=== PATIENT | female | born 1970 | race Caucasian/White ===

== ENCOUNTER 2019-04-20 14:15 | Emergency (ER) | payer MEDICAID, OTHER ==
[2019-04-20 14:20] VITALS: O2SAT 100
--- NOTE | 2019-04-20 14:55 | XRAY ---
Indication: Chest pain. Comparison: February 26, 2016. Portable chest again demonstrates normal heart, lungs, and bony thorax.
[2019-04-20 15:06] LABS: Absolute Neutrophil Ct (ANC) 4.47 (1.4-6.9); BASOPHIL % 0.4 % (0.0-0.4); Basophil (Absolute #) 0.03 (0-0.4); Eosinophil % 2.1 % (0.00-5.0); Eosinophil (Absolute #) 0.14 (0-0.5); Hematocrit 37.1 % (35-47); Hemoglobin 12.1 gm/dl (12.0-16.0); Lymphocyte (Absolute #) 1.61 (1.0-4.6); Lymphocytes % 23.9 % (24.0-44.0); Mean Cell Volume 89.2 fl (78-100); Mean Corpuscular Hemoglobin 29.1 pg (26-32); Mean Corpuscular Hgb Concent. 32.6 g/dl (32-36); Mean Platelet Volume 9.1 fl (7.5-11.0); Monocyte (Absolute #) 0.49 (0.0-1.3); Monocytes % 7.3 % (0.0-12.0); Neutrophil % 66.3 % (36.0-66.0); Platelet Count 281 K/mm3 (150-450); Red Blood Count 4.16 M/mm3 (4.1-5.4); Red Cell Distribution Width 14.1 % (11.5-14.0); White Blood Count 6.7 K/mm3 (4.0-10.5)
[2019-04-20 15:13] LABS: INR 0.97 (0.8-3.0); PROTIME 10.9 SECONDS (9.95-12.35)
[2019-04-20 15:16] LABS: PTT 30.6 SECONDS (25.3-37.0)
[2019-04-20 15:18] LABS: ALBUMIN 3.8 g/dL (3.5-5.0); ALKALINE PHOSPHATASE 82 U/L (38-126); ANION GAP 5.5 MEQ/L (5-15); BLOOD UREA NITROGEN 10 mg/dL (7-17); CHLORIDE 106 mmol/L (98-107); Calcium 8.9 mg/dL (8.4-10.2); Carbon Dioxide 29 mmol/L (22-30); Creatinine 1 0.82 mg/dL (0.52-1.04); Glucose 89 mg/dL (74-106); SGOT/AST 24 U/L (14-36); SGPT/ALT 15 U/L (0-35); SODIUM 137 mmol/L (137-145); Total Protein 7.1 g/dL (6.3-8.2)
[2019-04-20 16:00] LABS: Amphetamine,Urine NEGATIVE (NEGATIVE); Barbiturate,Urine NEGATIVE (NEGATIVE); Benzodiazepine,Urine NEGATIVE (NEGATIVE); Cocaine,Urine NEGATIVE (NEGATIVE); Methadone,Urine NEGATIVE (NEGATIVE); Opiate,Urine NEGATIVE (NEGATIVE); PCP,Urine NEGATIVE (NEGATIVE); THC,Urine NEGATIVE (NEGATIVE)
--- NOTE | 2019-04-20 16:19 | ERPHSYRPT ---
- History of Present Illness Time Seen by Provider: 04/20/19 14:20 Historian: patient Exam Limitations: no limitations Patient Subjective Stated Complaint: pt was sent from drs office for pain to left jaw and left side of chest, she states she has chest pain every day but not jaw pain, she states she was at drs office for a heavy vaginal bleeding, pt has hx of NM. she has not been taking her meds for 2-3 years Triage Nursing Assessment: pt alert, walked in, resp easy, skin w/d/p, abd soft. no edema noted, moves all ext well Physician History: Patient is a 48-year-old female with history of NM who presents to our ED as a referral from her physician's office. Patient has a history of NM. Patient was sent to our ED for evaluation of chest pain which radiates to her left neck and shoulder. Patient was also observed to have high blood pressure. Symptoms are constant. No specific worsening improving factors. Patient states she has chest pain chronically but her symptoms are much worse today. No trauma. No fever. No heart palpitations. Patient voices no other complaints at this time. Timing/Duration: today, improved Activities at Onset: none Quality: aching Location: substernal Chest Pain Radiation: jaw, neck Severity of Pain-Max: moderate Severity of Pain-Current: moderate Modifying Factors: Improves With: nothing Associated Symptoms: dizziness, No vomiting, No shortness of breath, No diaphoresis, No fever, No edema Prior Chest Pain/Cardiac Workup: heart attack Aspirin Treatment Today: no aspirin today Allergies/Adverse Reactions: ketorolac [From Toradol] Allergy (Severe, Verified 04/20/19 14:27) codeine Allergy (Verified 04/20/19 14:27) hydrocodone Allergy (Verified 04/20/19 14:27) hydromorphone [From Dilaudid] Allergy (Verified 04/20/19 14:27) meperidine HCl [From Demerol] Allergy (Verified 04/20/19 14:27) morphine Allergy (Verified 04/20/19 14:27) Home Medications: No Reportable Medications [No Reported Medications] 04/20/19 [History] Hx Tetanus, Diphtheria Vaccination/Date Given: No (unknown) Hx Influenza Vaccination/Date Given: No Hx Pneumococcal Vaccination/Date Given: No Immunizations Up to Date: Yes - Review of Systems Constitutional: No Fever, No Chills Eyes: No Symptoms Ears, Nose, & Throat: No Symptoms Respiratory: No Cough, No Dyspnea Cardiac: No Chest Pain, No Edema, No Syncope Abdominal/Gastrointestinal: No Abdominal Pain, No Nausea, No Vomiting, No Diarrhea Genitourinary Symptoms: No Dysuria Musculoskeletal: No Back Pain, No Neck Pain Skin: No Rash Neurological: No Dizziness, No Focal Weakness, No Sensory Changes Psychological: No Symptoms Endocrine: No Symptoms All Other Systems: Reviewed and Negative - Past Medical History Pertinent Past Medical History: Yes Neurological History: No Pertinent History ENT History: No Pertinent History Cardiac History: Coronary Artery Disease, High Cholesterol, Hypertension, Myocardial Infarction (NM), Other Respiratory History: No Pertinent History Endocrine Medical History: No Pertinent History Musculoskeletal History: No Pertinent History GI Medical History: Other History: No Pertinent History Psycho-Social History: No Pertinent History Female Reproductive Disorders: No Pertinent History Other Medical History: anemia - rectal bleeding - Past Surgical History Past Surgical History: Yes Neuro Surgical History: No Pertinent History Cardiac: Cardiac Catheterization Respiratory: No Pertinent History Gastrointestinal: Exploratory Laparoscopy Genitourinary: No Pertinent History Musculoskeletal: No Pertinent History Female Surgical History: Section, Tubal Ligation - Social History Smoking Status: Former smoker How long have you smoked: 13 Exposure to second hand smoke: Yes Drug Use: none Patient Lives Alone: No - Female History Hx Last Menstrual Period: now Hx Now: No - Nursing Vital Signs Nursing Vital Signs: Initial Vital Signs Temperature 98.1 F 04/20/19 14:16 Pulse Rate 76 04/20/19 14:16 Respiratory Rate 16 04/20/19 14:16 Blood Pressure 177/112 04/20/19 14:16 O2 Sat by Pulse Oximetry 100 04/20/19 14:16 Pain Scale Pain Intensity 0 - Physical Exam General Appearance: no apparent distress, alert Eye Exam: PERRL/EOMI, eyes nml inspection Ears, Nose, Throat Exam: normal ENT inspection, moist mucous membranes Neck Exam: normal inspection, non-tender, supple, full range of motion Respiratory Exam: normal breath sounds, lungs clear, No respiratory distress Cardiovascular Exam: regular rate/rhythm, normal heart sounds Gastrointestinal/Abdomen Exam: soft, No tenderness, No mass Pelvic Exam: not done Rectal Exam: deferred Back Exam: normal inspection, No CVA tenderness, No vertebral tenderness Extremity Exam: normal inspection, normal range of motion Neurologic Exam: alert, oriented x 3, cooperative, normal mood/affect, sensation nml, No motor deficits Skin Exam: normal color, warm, dry SpO2 Interpretation: normal SpO2: 100 O2 Delivery: Room Air - Course Nursing assessment & vital signs reviewed: Yes EKG Interpreted by Me: RATE, NORMAL AXIS, NORMAL INTERVALS - Radiology Exams Chest X-ray Interpretation: Teleradiologist Report, Negative Ordered Tests: Active Orders 24 hr Category Date Time Status Rrt STAT Care 04/20/19 14:34 Active EKG-ER Only STAT Care 04/20/19 14:33 Active IV Insertion STAT Care 04/20/19 14:33 Active Pulse Oximetry (ED) STAT Care 04/20/19 14:33 Active CHEST 1 VIEW (PORTABLE) Stat Exams 04/20/19 14:34 Completed CBC W DIFF Stat Lab 04/20/19 15:06 Completed CMP Stat Lab 04/20/19 15:06 Completed PROTIME WITH INR Stat Lab 04/20/19 15:06 Completed PTT Stat Lab 04/20/19 15:06 Completed TROPONIN Q3H Lab 04/20/19 15:06 Completed TROPONIN Q3H Lab 04/20/19 17:55 Completed TROPONIN Q3H Lab 04/20/19 20:45 Ordered TROPONIN Q3H Lab 04/20/19 23:45 Ordered TROPONIN Q3H Lab 04/21/19 02:45 Ordered Urine Triage Profile Stat Lab 04/20/19 15:36 Completed Medication Summary Discontinued Medications Generic Name Dose Route Start Last Admin Trade Name Freq PRN Reason Stop Dose Admin Aspirin 324 mg 04/20/19 17:46 04/20/19 17:56 Baby Aspirin 81 Mg Chew PO 04/20/19 17:47 324 mg STAT ONE Administration Aspirin Confirm 04/20/19 17:54 Baby Aspirin 81 Mg Chew Administered 04/20/19 17:55 Dose 324 mg .ROUTE .STK-MED ONE Lab/Rad Data: Laboratory Result Diagrams 04/20/19 15:06 04/20/19 15:06 Laboratory Results 04/20/19 04/20/19 04/20/19 Range/Units 17:55 15:36 15:06 WBC (4.0-10.5) K/mm3 RBC (4.1-5.4) M/mm3 Hgb (12.0-16.0) gm/dl Hct (35-47) % MCV (78-100) fl MCH (26-32) pg MCHC (32-36) g/dl RDW (11.5-14.0) % Plt Count (150-450) K/mm3 MPV (7.5-11.0) fl Gran % (36.0-66.0) % Eos # (Auto) (0-0.5) Absolute Lymphs (auto) (1.0-4.6) Absolute Monos (auto) (0.0-1.3) Lymphocytes % (24.0-44.0) % Monocytes % (0.0-12.0) % Eosinophils % (0.00-5.0) % Basophils % (0.0-0.4) % Absolute Granulocytes (1.4-6.9) Basophils # (0-0.4) PT (9.95-12.35) SECONDS INR (0.8-3.0) APTT (25.3-37.0) SECONDS Sodium (137-145) mmol/L Potassium (3.5-5.1) mmol/L Chloride (98-107) mmol/L Carbon Dioxide (22-30) mmol/L Anion Gap (5-15) MEQ/L BUN (7-17) mg/dL Creatinine (0.52-1.04) mg/dL Estimated GFR ML/MIN Glucose (74-106) mg/dL Calcium (8.4-10.2) mg/dL Total Bilirubin (0.2-1.3) mg/dL AST (14-36) U/L ALT (0-35) U/L Alkaline Phosphatase (38-126) U/L Troponin I < 0.012 < 0.012 (0.000-0.034) ng/mL Serum Total Protein (6.3-8.2) g/dL Albumin (3.5-5.0) g/dL Urine Opiates Level NEGATIVE (NEGATIVE) Ur Methadone NEGATIVE (NEGATIVE) Urine Barbiturates NEGATIVE (NEGATIVE) Ur Phencyclidine (PCP) NEGATIVE (NEGATIVE) Urine Amphetamine NEGATIVE (NEGATIVE) U Benzodiazepine Level NEGATIVE (NEGATIVE) Urine Cocaine NEGATIVE (NEGATIVE) Urine Marijuana (THC) NEGATIVE (NEGATIVE) 04/20/19 04/20/19 04/20/19 Range/Units 15:06 15:06 15:06 WBC 6.7 (4.0-10.5) K/mm3 RBC 4.16 (4.1-5.4) M/mm3 Hgb 12.1 (12.0-16.0) gm/dl Hct 37.1 (35-47) % MCV 89.2 (78-100) fl MCH 29.1 (26-32) pg MCHC 32.6 (32-36) g/dl RDW 14.1 H (11.5-14.0) % Plt Count 281 (150-450) K/mm3 MPV 9.1 (7.5-11.0) fl Gran % 66.3 H (36.0-66.0) % Eos # (Auto) 0.14 (0-0.5) Absolute Lymphs (auto) 1.61 (1.0-4.6) Absolute Monos (auto) 0.49 (0.0-1.3) Lymphocytes % 23.9 L (24.0-44.0) % Monocytes % 7.3 (0.0-12.0) % Eosinophils % 2.1 (0.00-5.0) % Basophils % 0.4 (0.0-0.4) % Absolute Granulocytes 4.47 (1.4-6.9) Basophils # 0.03 (0-0.4) PT 10.9 (9.95-12.35) SECONDS INR 0.97 (0.8-3.0) APTT 30.6 (25.3-37.0) SECONDS Sodium 137 (137-145) mmol/L Potassium 4.0 (3.5-5.1) mmol/L Chloride 106 (98-107) mmol/L Carbon Dioxide 29 (22-30) mmol/L Anion Gap 5.5 (5-15) MEQ/L BUN 10 (7-17) mg/dL Creatinine 0.82 (0.52-1.04) mg/dL Estimated GFR > 60.0 ML/MIN Glucose 89 (74-106) mg/dL Calcium 8.9 (8.4-10.2) mg/dL Total Bilirubin 0.40 (0.2-1.3) mg/dL AST 24 (14-36) U/L ALT 15 (0-35) U/L Alkaline Phosphatase 82 (38-126) U/L Troponin I (0.000-0.034) ng/mL Serum Total Protein 7.1 (6.3-8.2) g/dL Albumin 3.8 (3.5-5.0) g/dL Urine Opiates Level (NEGATIVE) Ur Methadone (NEGATIVE) Urine Barbiturates (NEGATIVE) Ur Phencyclidine (PCP) (NEGATIVE) Urine Amphetamine (NEGATIVE) U Benzodiazepine Level (NEGATIVE) Urine Cocaine (NEGATIVE) Urine Marijuana (THC) (NEGATIVE) - Progress Progress Note: 04/20/19 19:35 Patient requested transfer to [facility] to see her pharmaceutical development technician however her pharmaceutical development technician is no longer on staff there. He is currently on staff at [facility]. We attempted to transfer patient to [facility] however there [employer] is not functional at this time. The transfer was declined. We contacted [facility]. They accepted transfer. Dr. Nayak accepted transfer. Plan of care discussed with patient. She agrees to transfer to [facility] for further evaluation and treatment. Blood Culture(s) Obtained: No Antibiotics given: No Discussed with Dr.: Other (Case discussed with Dr. Nayak of [facility] who accepts transfer.) Counseled pt/family regarding: lab results, diagnosis, rad results - Departure Departure Disposition: Transfer Clinical Impression: Chest pain Condition: Stable Critical Care Time: No Referrals: FALLON CHANDRA [Primary Care Provider] - Additional Instructions: Patient request to be transferred to [facility]. Case discussed with her pharmaceutical development technician Dr. Solo who accepts transfer.
[2019-04-20] MEDS ORDERED: BABY ASPIRIN 81 MG CHEW PO ONE (17:46)
[2019-04-20] MEDS ORDERED: BABY ASPIRIN 81 MG CHEW ONE (17:54)
[2019-04-20] MEDS ORDERED: NITRO-BID 2% UD PACKETS TOP ONE (19:37)
[2019-04-20 19:38] VITALS: BP 131/88
[2019-04-20] MEDS ORDERED: NITRO-BID 2% UD PACKETS ONE ×2 (19:39→19:45)
[2019-04-20 20:00] VITALS: PULSE 76
== END 2019-04-20 19:55 | disposition short-term general hospital (02) ==
LOC: ED 14:15
DX: R07.89 Other chest pain (principal); I10 Essential (primary) hypertension; E78.00 Pure hypercholesterolemia, unspecified; I25.10 Atherosclerotic heart disease of native coronary artery without angina pectoris; I25.2 Old myocardial infarction
CPT/HCPCS: 36000; 36415; 71045; 80053; 80307; 84484; 85025; 85610; 85730; 93005; 93041; 94760; 99284; A9270-GY

== ENCOUNTER 2019-07-18 06:21 | Day surgery (SDC) | payer OTHER ==
[2019-07-18] MEDS ORDERED: Lactated Ringers 1,000 ML IV ONE ×2 (06:47→08:25)
[2019-07-18] MEDS ORDERED: CEFAZOLIN 2 GM-D5W BAG** 2 GM/50 ML ML IV ONE (06:47)
[2019-07-18] MEDS ORDERED: Lactated Ringers 1,000 ML IV SCH (07:00)
[2019-07-18] MEDS: CEFAZOLIN 2 GM-D5W BAG** 2 GM/50 ML ML IV SCH ×2 (07:01→07:02)
[2019-07-18] MEDS ORDERED: Zofran 4 MG/2 ML VIAL ONE (08:13)
[2019-07-18] MEDS ORDERED: DIPRIVAN 200 MG/20 ML IV ONE (08:13)
[2019-07-18] MEDS ORDERED: SUBLIMAZE 100 MCG/2 ML ONE (08:13)
[2019-07-18] MEDS ORDERED: TORAdol 30 mg Injection ONE ×2 (08:13→09:27)
[2019-07-18] MEDS ORDERED: Decadron 4 MG INJ ONE (08:13)
[2019-07-18] MEDS ORDERED: Xylocaine-Mpf 2% 5 Ml Vial ONE (08:13)
[2019-07-18 09:57] VITALS: O2SAT 98
[2019-07-18 10:33] VITALS: BP 138/90; PULSE 67
--- NOTE | 2019-07-19 08:15 | OP ---
SURGERY DATE/TIME: 07/18/2019830 PREOPERATIVE DIAGNOSIS: Abnormal uterine bleeding. POSTOPERATIVE DIAGNOSIS: Abnormal uterine bleeding as well as large endometrial polyp. PROCEDURE: Hysteroscopy, D&C with endometrial ablation using Novasure and resection of large endometrial polyp fundal region. SURGEON: Chandler Leal D.O. TUNNEL ELASTIC OPERATOR CHAINSTITCH: Deirdre Dunne, surgical appliances salesperson. ANESTHESIA: General. ESTIMATED BLOOD LOSS: Minimal. COMPLICATIONS: None. INDICATIONS: The risks, benefits, indications and alternatives of the procedure were reviewed with the patient prior to procedure. The patient understood the risk of infection, bleeding, bowel injury, bladder injury, ureteral injury, uterine perforation and pelvic infection associated with this surgery. However desires to have this surgery as a possible need to alleviate her current medical condition. DESCRIPTION OF PROCEDURE AND FINDINGS: At this point the patient is taken to the operating room, given general sedation, placed in dorsal lithotomy position. Prepped and draped in the usual sterile fashion. A weighted speculum is then placed in the patient's vagina and the anterior lip of the cervix was grasped with a single tooth tenaculum. Endocervical dilators are advanced through the endocervical canal as a means to dilate the cervix and at this point a 5 mm hysteroscope was then placed into the endocervical canal where visualization revealed her to have a fundal endometrial polypoid lesion approximately 2 x 2 cm in dimension. There were no other gross abnormalities other than this one polypoid lesion. From this point the MyoSure was then introduced through the channel of the hysteroscope and was taken to the lesion itself where the MyoSure was turned on and complete removal of the polypoid lesion was taken place. From this point the hysteroscope was then removed from the endometrial cavity. At this point a curette was then placed into the fundus of the uterus and currettage was performed in all quadrants of the uterus retrieving a mild to moderate amount of tissue. There was minimal bleeding that was noted from the cervix. At this point the Novasure instrument was then placed and then grasped and was taken through the endocervical canal where it reached the fundus and retracted approximately 1 cm and was engaged with a length of 6 cm and a width of 3.1 cm where at this point the machine was turned on for approximately 30 to 40 seconds of ablative time and was done so without complication. After complete ablation the Novasure was disengaged and was removed from the uterine cavity. From this point, all subsequent instruments were then removed from the patient's vaginal region. The patient was taken out of the dorsal lithotomy position, was taken out of anesthesia and was taken to the recovery room in stable condition. All instruments and laps were accounted for x2.
== END 2019-07-18 10:25 | disposition home or self-care (01) ==
LOC: SDC 06:21
PROVIDERS: ATTEND Obstetrics & Gynecology
DX: N93.9 Abnormal uterine and vaginal bleeding, unspecified (principal); N84.0 Polyp of corpus uteri
CPT/HCPCS: 84703; 88305; J0690; J1100; J1885; J2405; J2704; J3010

== ENCOUNTER 2019-10-10 05:49 | Inpatient (IN) | payer OTHER ==
[~2019-10-10 05:49] MED LIST: CEFAZOLIN 2 GM-D5W BAG** 2 GM/50 ML ML IV ONE
[2019-10-10] MEDS ORDERED: Lactated Ringers 1,000 ML IV SCH (06:00)
[2019-10-10] MEDS ORDERED: Lactated Ringers 1,000 ML IV ONE (06:01)
[2019-10-10] MEDS ORDERED: CEFAZOLIN 2 GM-D5W BAG** 2 GM/50 ML ML IV ONE (06:01)
[2019-10-10] MEDS ORDERED: Versed 2 MG/2 ML Injection ONE (07:31)
[2019-10-10] MEDS ORDERED: BRIDION 200MG/2ML IV ONE (07:31)
[2019-10-10] MEDS ORDERED: TORAdol 30 mg Injection ONE (07:31)
[2019-10-10] MEDS ORDERED: Zofran 4 MG/2 ML VIAL ONE ×2 (07:31→10:23)
[2019-10-10] MEDS ORDERED: SUBLIMAZE 100 MCG/2 ML ONE ×2 (07:31→10:23)
[2019-10-10] MEDS ORDERED: Zemuron 100 MG/10 ML ONE (07:31)
[2019-10-10] MEDS ORDERED: Xylocaine-Mpf 2% 5 Ml Vial ONE (07:31)
[2019-10-10] MEDS ORDERED: DIPRIVAN 200 MG/20 ML IV ONE (07:31)
[2019-10-10] MEDS ORDERED: Decadron 4 MG INJ ONE ×2 (07:31→08:57)
[2019-10-10] MEDS ORDERED: Ketamine HCl 50 MG/ML ONE (07:32)
[2019-10-10] MEDS ORDERED: Astramorph-Pf 5 MG/10 ML ONE (07:39)
[2019-10-10 07:43] LABS: ABO TYPING O; Antibody Screen NEGATIVE (NEGATIVE); RH TYPING NEGATIVE
[2019-10-10] MEDS ORDERED: MARCAINE 0.5%-EPI 1:200,000 VL IJ ONE (08:57)
[2019-10-10] MEDS ORDERED: Nitrostat 0.4 MG Tablet SL ONE (09:52)
[2019-10-10] MEDS ORDERED: Ecotrin 325 MG ONE (10:18)
--- NOTE | 2019-10-10 11:03 | XRAY ---
Indication: Chest pain. Comparison: April 20, 2019. Portable chest again demonstrates normal heart and lungs. Bony thorax intact. No new/acute findings.
[2019-10-10] MEDS ORDERED: Zofran 4 MG/2 ML VIAL IV PRN (12:04)
[2019-10-10] MEDS ORDERED: TORAdol 30 mg Injection IV PRN (12:06)
[2019-10-10] MEDS ORDERED: Ntg 0.2MG/Ml in D5W GLASS*** 250 ML IV SCH (12:15)
[2019-10-10 12:36] LABS: Appearance CLEAR (CLEAR); Bilirubin NEGATIVE (NEGATIVE); Blood NEGATIVE Ery/ul (0-5); Epithelial Cells RARE /HPF (FEW); Glucose NEGATIVE (NEGATIVE); Ketones NEGATIVE (NEGATIVE); Leukocyte Esterase NEGATIVE (NEGATIVE); Mucus SLIGHT /HPF (NEGATIVE); Nitrite NEGATIVE (NEGATIVE); Protein,Urine Dip NEGATIVE (Negative); Specific Gravity 1.023 (1.005-1.025); Urobilinogen NEGATIVE mg/dL (0-1)
[2019-10-10] MEDS ORDERED: Nitrostat 0.4 MG Tablet SL PRN (13:21)
[2019-10-10] MEDS: Lactated Ringers 1,000 ML IV SCH (13:29)
[2019-10-10] MEDS: Mylicon 80MG PO SCH ×2 (13:49→21:34)
[2019-10-10] MEDS: Reglan 10 MG/2 ML IV SCH ×2 (13:49→21:34)
[2019-10-10] MEDS: Colace 100 MG PO SCH ×2 (13:49→21:36)
[2019-10-10] MEDS: CEFAZOLIN 2 GM-D5W BAG** 2 GM/50 ML ML IV SCH ×2 (13:53→21:35)
[2019-10-10] MEDS ORDERED: Cardizem CD 120 MG PO SCH (14:00)
[2019-10-10] MEDS: Cardizem CD 120 MG PO SCH (17:06)
[2019-10-10 18:47] LABS: Hematocrit 36.9 % (35-47); Hemoglobin 11.8 gm/dl (12.0-16.0); Mean Cell Volume 92.7 fl (78-100); Mean Corpuscular Hemoglobin 29.6 pg (26-32); Mean Platelet Volume 9.5 fl (7.5-11.0); Platelet Count 283 K/mm3 (150-450); Red Blood Count 3.98 M/mm3 (4.1-5.4); Red Cell Distribution Width 14.5 % (11.5-14.0); White Blood Count 12.8 K/mm3 (4.0-10.5)
[2019-10-10] MEDS ORDERED: ENOXAPARIN SODIUM SQ SCH (21:00)
[2019-10-11] MEDS: Lactated Ringers 1,000 ML IV SCH ×2 (00:57→04:57)
[2019-10-11 05:02] LABS: Hematocrit 34.7 % (35-47); Hemoglobin 11.1 gm/dl (12.0-16.0); Mean Corpuscular Hemoglobin 30.1 pg (26-32); Platelet Count 283 K/mm3 (150-450); Red Blood Count 3.69 M/mm3 (4.1-5.4); Red Cell Distribution Width 14.5 % (11.5-14.0); White Blood Count 13.3 K/mm3 (4.0-10.5)
[2019-10-11 05:26] LABS: ALKALINE PHOSPHATASE 59 U/L (38-126); ANION GAP 6.4 MEQ/L (5-15); BLOOD UREA NITROGEN 8 mg/dL (7-17); CHLORIDE 103 mmol/L (98-107); Calcium 8.5 mg/dL (8.4-10.2); Carbon Dioxide 29 mmol/L (22-30); Glucose 130 mg/dL (74-106); Potassium 3.9 mmol/L (3.5-5.1); SGOT/AST 27 U/L (14-36); SGPT/ALT 14 U/L (0-35); SODIUM 135 mmol/L (137-145); Total Protein 5.5 g/dL (6.3-8.2)
[2019-10-11] MEDS: Mylicon 80MG PO SCH ×3 (05:55→22:10)
[2019-10-11] MEDS: Reglan 10 MG/2 ML IV SCH ×3 (05:56→22:10)
[2019-10-11] MEDS: TORAdol 30 mg Injection IV PRN ×2 (08:09→13:43)
--- NOTE | 2019-10-11 08:12 | OP ---
SURGERY DATE/TIME: 10/10/2019 0756 PREOPERATIVE DIAGNOSIS: Abnormal uterine bleeding with previous failed endometrial ablation. POSTOPERATIVE DIAGNOSIS: Abnormal uterine bleeding with previous failed endometrial ablation with pelvic adhesion. PROCEDURE: Laparotomy, supracervical hysterectomy, bilateral salpingectomy with lysis of pelvic adhesion. SURGEON: Chandler Leal D.O. CADWORX PIPING DESIGNER: Diana Wilson, surgical instruments inspector. ANESTHESIA: General. ESTIMATED BLOOD LOSS: Less than 100 cc. COMPLICATIONS: None. INDICATIONS: The risks, benefits, indications and alternatives of the procedure were reviewed with the patient prior to procedure. The patient understood the risk of infection, bleeding, bladder injury, ureteral injury, incisional hernia, pelvic infection and thrombophilia disorder associated with this surgery and desires to have this surgery as a possible need to alleviate her current medical condition. DESCRIPTION OF PROCEDURE AND FINDINGS: At this point the patient is taken to the operating room where she was placed in supine position, given general anesthesia, prepared and draped in the usual sterile fashion. A Pfannenstiel incision was made approximately 2 cm above the symphysis pubis and extended sharply to the rectus fascia. The fascia was then incised bilaterally with curved Hewitt scissors. The muscle of the anterior abdominal wall was in the midline by sharp and blunt dissection. The peritoneum was then grasped between two pickups elevated and entered sharply with Metzenbaum scissors. The pelvis is then examined and noted to have approximately 10 week size uterus. There were also dense adhesions between the bladder and the anterior abdominal wall which was released with Metzenbaum scissors. At this point an O'Jacob-O'Amato retractor was placed into the incision and the bowel packed with moist laparotomy sponges. Two Cem clamps were placed on the cornua and used for retraction. At this point the LigaSure was then used and was placed over the left utero-ovarian ligament where it was clamped, coagulated and cut and taking down to round ligament towards the uterine vessel on the left side. The same procedure was performed on the right side where the right utero-ovarian ligament was clamped, coagulated and cut taking down to the round ligament and towards the uterine vasculature on its side. From this point the anterior lip of broad ligament was incised allowing bladder reflection into the midline on both sides. The bladder was gently dissected off of the lower uterine segment and the cervix with a sponge stick. From this point the uterine arteries were skeletonized bilaterally clamped with Yobany clamps transected and suture ligated with 0 Vicryl suture. Again hemostasis was assured. From this point the bipolar fabricator artificial breast was then used to amputate the uterus from its cervical stump and was done so without complication with minimal bleeding that was noted. The cervical stump was then closed along with the peritoneum with 0 Vicryl suture and hemostasis was assured. From this point the right fallopian tube was identified and the LigaSure was used and placed over the mesosalpinx and excision of the fallopian tube was obtained and the same procedure was performed on the left side where the LigaSure was placed over the mesosalpinx excising the left fallopian tube. The bilateral ovaries appeared to be within normal limits and were not removed during the procedure. From this point the pelvis was then irrigated copiously with normal saline. All lap, sponge and instruments were removed from the patient's abdomen. At this point the fascia was closed with running 0 Vicryl suture and hemostasis was assured. The muscle was closed in interrupted fashion using 3-0 chromic suture. The skin was closed with absorbable belinda called INSORB. Sponge, lap, needle and instrument counts were correct x2. The patient was then taken to the recovery room in stable condition.
[2019-10-11] MEDS ORDERED: Sodium Chloride 0.9% 10 ML FLUSH Syringe IV PRN (09:00)
[2019-10-11] MEDS: Colace 100 MG PO SCH ×2 (09:11→22:10)
[2019-10-11] MEDS: OFIRMEV 100 ML IV SCH ×2 (09:11→16:37)
[2019-10-11] MEDS: hydroDIURIL 25 MG PO SCH (09:11)
[2019-10-11] MEDS ORDERED: DILTIAZEM HCL 240 MG PO SCH (10:00)
[2019-10-11] MEDS ORDERED: NON-FORMULARY ITEM (Aspirin [Aspirin] 81 MG) PO SCH (10:00)
[2019-10-11] MEDS: Sodium Chloride 0.9% 10 ML FLUSH Syringe IV SCH ×2 (13:43→22:10)
[2019-10-11] MEDS: Cardizem CD 120 MG PO SCH (16:37)
[2019-10-11] MEDS ORDERED: ECOTRIN 81 MG PO SCH (17:00)
[2019-10-12] MEDS: OFIRMEV 100 ML IV SCH (00:27)
[2019-10-12] MEDS: Mylicon 80MG PO SCH (05:31)
[2019-10-12] MEDS: Reglan 10 MG/2 ML IV SCH (05:31)
[2019-10-12] MEDS: Sodium Chloride 0.9% 10 ML FLUSH Syringe IV SCH (05:32)
[2019-10-12 07:12] VITALS: BP 106/55; PULSE 66
[2019-10-12 08:16] VITALS: O2SAT 97
--- NOTE | 2019-10-12 08:23 | PCM.DCORD ---
- Discharge Prescriptions: No Action Diltiazem HCl [Cartia Xt] 240 mg PO DAILY Nitroglycerin [Nitrostat] 0.4 mg SL Q5MIN PRN MR X 3 PRN PRN Reason: Chest Pain Ibuprofen 800 mg PO DAILY PRN PRN PRN Reason: Pain Hydrochlorothiazide 25 mg [hydroDIURIL 25 MG] 25 mg PO DAILY Aspirin 81 mg PO DAILY Potassium Chloride 10 meq PO DAILY Follow up with: TULIO GARCIA DO [ACTIVE STAFF] - Call for Appointment (FU WITH DR GARCIA IN 2 WKS)
--- NOTE | 2019-10-12 08:28 | PCM.DS ---
Discharge Summary Date of Admission: 10/10/19 05:49 Date of Discharge: OCTOBER 12, 2019 Admitting Physician: TULIO GARCIA DO Consults: Consults on Case 10/10/19 13:14 Consult Physician ROUTINE Primary Care Provider: FALLON CHANDRA Allergies Allergies codeine Allergy (Severe, Verified 10/10/19 06:06) Difficulty Breathing hydrocodone Allergy (Severe, Verified 10/10/19 06:06) hydromorphone [From Dilaudid] Allergy (Severe, Verified 10/10/19 06:06) meperidine HCl [From Demerol] Allergy (Severe, Verified 10/10/19 06:06) in resp arrest with some narcotics morphine Allergy (Severe, Verified 10/10/19 06:06) Hospital Summary - Hospital Course Hospital Course: PT ADMITTED ON OCTOBER 09 FOR UNDERGOING LAPAROTOMY SUPRACERVICAL HYSTERECTYOMY B/L SALPINGECTOMY FOR ABNORMAL UTERINE BLEEDING FAILED ABLATION AND UNDERWENT PROCEDURE WITHOUT COMPLICATION. DURING POSTOP COURSE WHILE PT IN RECOVERY ROOM EXPERIENCED CHEST PAIN AND WAS GIVEN NITROGLYCERIN AND DR ANN CALLED AND SUBSEQUENTLY MANAGED. PT BECAME STABLE AND WAS SENT TO ICU. DURING POSTOP 1 PT HAD STABLE HEMOGLOBIN AT 11 AND VITALS SIGNS REMAINED STABLE THROUGHOUT. DURING POSTOP DAY 2 PT STABLE NOW FOR DISCHARGE SHE HAD POSITIVE FLATUS AND WAS ABLE TO AMBULATE AND TOLERATE DIET. PT GIVEN INSTRUCTIONS TO FU IN OFFICE IN 2 WKS FOR POSTOP CARE AND WAS GIVEN TORADOL FOR PAIN MANAGEMENT AND LEVOFLOXACIN FOR POSITIVE URINE CULTURE. ALL QUESTIONS ANSWERED TO HER SATISFACTION. - Vitals & Intake/Output Vital Signs: Vital Signs Temperature 98.6 F 10/12/19 07:11 Pulse Rate 66 10/12/19 07:11 Respiratory Rate 20 10/12/19 07:11 Blood Pressure 106/55 10/12/19 07:11 O2 Sat by Pulse Oximetry 97 10/12/19 08:14 Intake & Output: Intake & Output 10/09/19 10/10/19 10/11/19 10/12/19 11:59 11:59 11:59 11:59 Intake Total 2386 1025 Output Total 1225 Balance 1161 1025 Weight 89.1 kg 97.7 kg 93.5 kg - Lab Result Diagrams: 10/11/19 04:35 10/11/19 04:35 Micro Results-Entire Visit: Microbiology 10/10/19 08:12 Urine Culture - Final Urine, Catheterized Streptococcus Agalactiae - Radiology Exams Ordered Rad Exams-Entire Visit: Radiology Procedures Category Date Time Status CHEST 1 VIEW (PORTABLE) Stat Exams 10/10/19 10:39 Completed - Procedures and Test Procedures and Tests throughout Hospitalization: Therapy Orders & Screens 10/10/19 12:00 EKG Q8HX2,QAMX3,PRN Comment: Diagnosis: DUB Incentive Spirometry UD Comment: Diagnosis: DUB 10/10/19 12:02 EKG ONCE Comment: Diagnosis: DUB 10/10/19 12:15 Oxygen Nasal Cannula 2 lpm Comment: Diagnosis: DUB 10/10/19 18:00 EKG ONCE Comment: Diagnosis: DUB 10/11/19 05:00 EKG ONCE Comment: Diagnosis: DUB 10/12/19 05:00 EKG ONCE Comment: Diagnosis: DUB 10/13/19 05:00 EKG ONCE Comment: Diagnosis: DUB Discharge Exam Wound Assessment: Skin/Wound Assessment Wound/Incision Assessment Start: 10/10/19 12:33 Text: Status: Active Freq: Q6H Protocol: Document 10/12/19 01:00 EG (Rec: 10/12/19 02:13 EG [id number]) Wound/Incision Assessment Lower Abdomen Wound Assessment Admission Wound Type Incision Wound Stage Non Pressure Wound Drainage Amount None Drainage Odor None/Absent General Appearance Open to air,Clean/Dry Surrounding Tissue E. Lopez Final Diagnosis/Problem List - Final Discharge Diagnosis/Problem (1) Abnormal uterine bleeding Current Visit: Yes Status: Acute Code(s): N93.9 - ABNORMAL UTERINE AND VAGINAL BLEEDING, UNSPECIFIED (2) Chest pain Current Visit: No Status: Acute Code(s): R07.9 - CHEST PAIN, UNSPECIFIED (3) Chest pain, rule out acute myocardial infarction Current Visit: No Status: Acute Code(s): R07.9 - CHEST PAIN, UNSPECIFIED - Discharge Discharge Date: 10/12/19 Disposition: Home, Self-Care Prescriptions: No Action Diltiazem HCl [Cartia Xt] 240 mg PO DAILY Nitroglycerin [Nitrostat] 0.4 mg SL Q5MIN PRN MR X 3 PRN PRN Reason: Chest Pain Ibuprofen 800 mg PO DAILY PRN PRN PRN Reason: Pain Hydrochlorothiazide 25 mg [hydroDIURIL 25 MG] 25 mg PO DAILY Aspirin 81 mg PO DAILY Potassium Chloride 10 meq PO DAILY Follow up with: FALLON CHANDRA [Primary Care Provider] - 10/19/19 9:30 am TULIO GARCIA DO [ACTIVE STAFF] - Call for Appointment (FU WITH DR GARCIA IN 2 WKS)
[2019-10-12] MEDS: hydroDIURIL 25 MG PO SCH (10:00)
[2019-10-12] MEDS: Colace 100 MG PO SCH (10:00)
[2019-10-12] MEDS ORDERED: TORAdol 10 MG TABLET PO ONE (10:20)
--- NOTE | 2019-10-14 09:42 | PCM.CONS ---
History of Present Illness - Reason for Consult Chief Complaint: chest pain after surgical procedure Date of Consultation Date: 10/10/19 Requesting Provider: Dr Leal Consulting Provider: HOLDEN SMITH History of Present Illness: is a 48 year old female. Underwent hysterectomy and after hysterectomy when she was in recovery room she developed sharp stabbing chest pain which was radiating to the back and her left shoulder. Patient has a history of hypertension. So Dr. Calix called me and informed me about patient symptoms and presentations. Patient EKG and troponin was done which were reviewed and were reported negative. But considering consistent chest pain I advised patient to be admitted in ICU as observation. When patient was seen patient did not have any chest pain as patient was started on nitro drip. Patient surface lay out technician is Dr. Escalante in [place]. - Review of Systems Constitutional: No Fever, No Chills Eyes: No Symptoms Ears, Nose, & Throat: No Symptoms Respiratory: No Cough, No Short Of Breath Cardiac: Chest Pain, No Edema, No Syncope Abdominal/Gastrointestinal: No Abdominal Pain, No Nausea, No Vomiting, No Diarrhea Genitourinary Symptoms: No Dysuria Musculoskeletal: No Back Pain, No Neck Pain Skin: No Rash Neurological: No Dizziness, No Focal Weakness, No Sensory Changes Psychological: No Symptoms Endocrine: No Symptoms Hematologic/Lymphatic: No Symptoms Immunological/Allergic: No Symptoms Medications & Allergies Home Medications: Home Medication List Diltiazem HCl [Cartia Xt] 240 mg PO DAILY 07/13/19 [History Confirmed 10/10/19] Aspirin 81 mg PO DAILY 10/03/19 [History Confirmed 10/10/19] Hydrochlorothiazide 25 mg [hydroDIURIL 25 MG] 25 mg PO DAILY 10/03/19 [History Confirmed 10/10/19] Ibuprofen 800 mg PO DAILY PRN PRN 10/03/19 [History Confirmed 10/03/19] Nitroglycerin [Nitrostat] 0.4 mg SL Q5MIN PRN MR X 3 PRN 10/03/19 [History Confirmed 10/03/19] Potassium Chloride 10 meq PO DAILY 10/03/19 [History Confirmed 10/10/19] Allergies/Adverse Reactions: Allergies Allergy/AdvReac Type Severity Reaction Status Date / Time codeine Allergy Severe Difficulty Verified 10/10/19 06:06 Breathing hydrocodone Allergy Severe Verified 10/10/19 06:06 hydromorphone [From Dilaudid] Allergy Severe Verified 10/10/19 06:06 meperidine HCl [From Demerol] Allergy Severe Verified 10/10/19 06:06 morphine Allergy Severe Verified 10/10/19 06:06 - Past Medical History Past Medical History: Yes Neurological History: No Pertinent History ENT History: Glaucoma Cardiac History: Coronary Artery Disease, Hypertension, Myocardial Infarction (SD), Other Respiratory History: No Pertinent History Endocrine Medical History: No Pertinent History Musculoskelatal History: No Pertinent History GI Medical History: Gallbladder Disease, Other History: No Pertinent History Pyscho-Social History: No Pertinent History Reproductive Disorders: No Pertinent History Comment: anemia - rectal bleeding, - Female History Are you now?: No - Past Surgical History Past Surgical History: Yes Neuro Surgical History: No Pertinent History Cardiac History: Cardiac Catheterization Respiratory Surgery: No Pertinent History GI Surgical History: Cholecystectomy, Exploratory Laparoscopy Genitourinary Surgical Hx: No Pertinent History Musculskeletal Surgical Hx: No Pertinent History Female Surgical History: Section, Tubal Ligation, Other Other Surgical History: c-sec x3, heart caths x3. breast biopsy - Social History Smoking Status: Former smoker How long have you smoked: 13 Exposure to second hand smoke: No Alcohol: Occasionally Drug Use: none - Physical Exam General Appearance: no apparent distress, alert Neurologic Exam: alert, oriented x 3, cooperative, normal mood/affect, nml cerebellar function, nml station & gait, sensation nml, No motor deficits Eye Exam: PERRL/EOMI, eyes nml inspection Ears, Nose, Throat Exam: normal ENT inspection, TMs normal, pharynx normal, moist mucous membranes Neck Exam: normal inspection, non-tender, supple, full range of motion Respiratory Exam: normal breath sounds, lungs clear, No respiratory distress Cardiovascular Exam: regular rate/rhythm, normal heart sounds, normal peripheral pulses Gastrointestinal/Abdomen Exam: soft, normal bowel sounds, No tenderness, No mass Back Exam: normal inspection, normal range of motion, No CVA tenderness, No vertebral tenderness Extremity Exam: normal inspection, normal range of motion, pelvis stable Skin Exam: normal color, warm, dry, No rash Lymphatic Exam: No adenopathy Results - Labs Lab/Micro Results: Lab Results-Last 24 Hours 10/10/19 Range/Units 08:43 Surg PTH Diagnosis See Note H Microbiology 10/10/19 08:12 Urine Culture - Final Urine, Catheterized Streptococcus Agalactiae Assessment/Plan (1) Chest pain, rule out acute myocardial infarction Status: Acute Assessment & Plan: Chief Complaint Diagnosis chest pain after surgical procedure Allergies Allergy/AdvReac Type Severity Reaction Status Date / Time codeine Allergy Severe Difficulty Verified 10/10/19 06:06 Breathing hydrocodone Allergy Severe Verified 10/10/19 06:06 hydromorphone [From Dilaudid] Allergy Severe Verified 10/10/19 06:06 meperidine HCl [From Demerol] Allergy Severe Verified 10/10/19 06:06 morphine Allergy Severe Verified 10/10/19 06:06 Home Medications Medication Instructions Recorded Confirmed Last Taken Type Aspirin 81 mg PO DAILY 10/03/19 10/10/19 10/02/19 17:00 History Hydrochlorothiazide 25 mg 25 mg PO DAILY 10/03/19 10/10/19 10/10/19 04:30 History [hydroDIURIL 25 MG] Ibuprofen 800 mg PO DAILY PRN PRN 10/03/19 10/03/19 Unknown History Nitroglycerin [Nitrostat] 0.4 mg SL Q5MIN PRN MR X 3 PRN 10/03/19 10/03/19 Unknown History Potassium Chloride 10 meq PO DAILY 10/03/19 10/10/19 09/08/19 15:00 History Current Medications Discontinued Medications Generic Name Dose Route Start Last Admin Trade Name Freq PRN Reason Stop Dose Admin Aspirin 650 mg 10/10/19 10:18 Ecotrin 325 Mg .ROUTE 10/10/19 10:19 .STK-MED ONE Aspirin 81 mg 10/11/19 17:00 10/11/19 16:37 Ecotrin 81 Mg PO 11/10/19 16:59 81 mg 1700 CARMEN Administration Bupivacaine HCl/Epinephrine Bitart Confirm 10/10/19 08:57 Marcaine 0.5%-Epi 1:200,000 Vl Administered 10/10/19 08:58 Dose 30 ml IJ .STK-MED ONE Dexamethasone Sodium Phosphate Confirm 10/10/19 07:31 Decadron 4 Mg Inj Administered 10/10/19 07:32 Dose 8 mg .ROUTE .STK-MED ONE Dexamethasone Sodium Phosphate Confirm 10/10/19 08:57 Decadron 4 Mg Inj Administered 10/10/19 08:58 Dose 4 mg .ROUTE .STK-MED ONE Diltiazem HCl 240 mg 10/10/19 14:00 Cardizem Cd 120 Mg PO 11/09/19 13:59 DAILY CARMEN Diltiazem HCl 240 mg 10/10/19 17:00 10/11/19 16:37 Cardizem Cd 120 Mg PO 11/09/19 13:59 240 mg 1700 CARMEN Administration Docusate Sodium 100 mg 10/10/19 13:00 10/12/19 10:00 Colace 100 Mg PO 11/09/19 12:59 100 mg BID CARMEN Administration Enoxaparin Sodium 40 mg 10/10/19 21:00 10/10/19 21:34 Enoxaparin Sodium SQ 10/10/19 21:01 40 mg 2100 CARMEN Administration Fentanyl Citrate Confirm 10/10/19 07:31 Sublimaze 100 Mcg/2 Ml Administered 10/10/19 07:32 Dose 100 mcg .ROUTE .STK-MED ONE Fentanyl Citrate Confirm 10/10/19 10:23 Sublimaze 100 Mcg/2 Ml Administered 10/10/19 10:24 Dose 100 mcg .ROUTE .STK-MED ONE Hydrochlorothiazide 25 mg 10/11/19 10:00 10/12/19 10:00 Hydrodiuril 25 Mg PO 11/10/19 09:59 25 mg DAILY CARMEN Administration Lactated Ringer's 1,000 mls @ 50 mls/hr 10/10/19 06:00 10/10/19 06:38 Lactated Ringers IV 11/09/19 05:59 50 mls/hr .Q20H CARMEN Administration Cefazolin Sodium/Dextrose 2 gm in 50 mls @ 100 mls/hr 10/10/19 05:48 10/10/19 07:50 Cefazolin 2 Gm-D5w Bag IV 10/10/19 06:17 100 mls/hr STAT ONE Administration Cefazolin Sodium/Dextrose Confirm 10/10/19 06:01 Cefazolin 2 Gm-D5w Bag Administered 10/10/19 06:02 Dose 2 gm in 50 mls @ ud IV .STK-MED ONE Lactated Ringer's Confirm 10/10/19 06:01 Lactated Ringers Administered 10/10/19 06:02 Dose 1,000 mls @ ud IV .STK-MED ONE Lactated Ringer's 1,000 mls @ 125 mls/hr 10/10/19 12:30 10/11/19 04:57 Lactated Ringers IV 11/09/19 12:29 125 mls/hr .Q8H CARMEN Administration Cefazolin Sodium/Dextrose 2 gm in 50 mls @ 100 mls/hr 10/10/19 14:00 10/10/19 21:35 Cefazolin 2 Gm-D5w Bag IV 10/10/19 22:29 100 mls/hr Q8HT CARMEN Administration Nitroglycerin/Dextrose 250 mls @ 5 mls/hr 10/10/19 12:15 10/10/19 13:53 Ntg 0.2mg/Ml In D5w Glass IV 11/09/19 12:14 6 mcg/min .Q24H CARMEN 1.8 mls/hr Administration Acetaminophen 100 mls @ 400 mls/hr 10/11/19 09:00 10/12/19 00:27 Ofirmev IV 11/10/19 08:59 400 mls/hr Q8H CARMEN Administration Ketamine HCl Confirm 10/10/19 07:32 Ketamine Hcl 50 Mg/Ml Administered 10/10/19 07:33 Dose 10 mg .ROUTE .STK-MED ONE Ketorolac Tromethamine Confirm 10/10/19 07:31 Toradol 30 Mg Injection Administered 10/10/19 07:32 Dose 30 mg .ROUTE .STK-MED ONE Ketorolac Tromethamine 30 mg 10/10/19 12:06 10/10/19 17:06 Toradol 30 Mg Injection IV 10/10/19 23:30 30 mg Q6H PRN PRN Administration BREAKTHRU PAIN Ketorolac Tromethamine 30 mg 10/11/19 08:01 10/11/19 13:43 Toradol 30 Mg Injection IV 10/16/19 08:00 30 mg Q6H PRN PRN Administration PAIN Ketorolac Tromethamine 10 mg 10/12/19 10:20 10/12/19 10:34 Toradol 10 Mg Tablet PO 10/12/19 10:21 10 mg ONCE ONE Administration Lidocaine HCl Confirm 10/10/19 07:31 Xylocaine-Mpf 2% 5 Ml Vial Administered 10/10/19 07:32 Dose 5 ml .ROUTE .STK-MED ONE Metoclopramide HCl 10 mg 10/10/19 14:00 10/12/19 05:31 Reglan 10 Mg/2 Ml IV 11/09/19 13:59 10 mg Q8HT CARMEN Administration Midazolam HCl Confirm 10/10/19 07:31 Versed 2 Mg/2 Ml Injection Administered 10/10/19 07:32 Dose 2 mg .ROUTE .STK-MED ONE Morphine Sulfate Confirm 10/10/19 07:39 Astramorph-Pf 5 Mg/10 Ml Administered 10/10/19 07:40 Dose 5 mg .ROUTE .STK-MED ONE Nitroglycerin Confirm 10/10/19 09:52 Nitrostat 0.4 Mg Tablet Administered 10/10/19 09:53 Dose 0.4 mg SL .STK-MED ONE Nitroglycerin 0.4 mg 10/10/19 13:21 Nitrostat 0.4 Mg Tablet SL 11/09/19 13:20 Q5MIN PRN MR X 3 PRN CHEST PAIN Ondansetron HCl Confirm 10/10/19 07:31 Zofran 4 Mg/2 Ml Vial Administered 10/10/19 07:32 Dose 4 mg .ROUTE .STK-MED ONE Ondansetron HCl Confirm 10/10/19 10:23 Zofran 4 Mg/2 Ml Vial Administered 10/10/19 10:24 Dose 4 mg .ROUTE .STK-MED ONE Ondansetron HCl 4 mg 10/10/19 12:04 Zofran 4 Mg/2 Ml Vial IV 11/09/19 12:03 Q6H PRN PRN NAUSEA/VOMITING Propofol Confirm 10/10/19 07:31 Diprivan 200 Mg/20 Ml Administered 10/10/19 07:32 Dose 200 mg IV .STK-MED ONE Rocuronium [place] Confirm 10/10/19 07:31 Zemuron 100 Mg/10 Ml Administered 10/10/19 07:32 Dose 40 mg .ROUTE .STK-MED ONE Simethicone 80 mg 10/10/19 14:00 10/12/19 05:31 Mylicon 80mg PO 11/09/19 13:59 80 mg Q8HT CARMEN Administration Sodium Chloride 10 ml 10/11/19 14:00 10/12/19 05:32 Sodium Chloride 0.9% 10 Ml Flush Syringe IV 11/10/19 13:59 10 ml Q8HT CARMEN Administration Sodium Chloride 10 ml 10/11/19 09:00 Sodium Chloride 0.9% 10 Ml Flush Syringe IV 11/10/19 08:59 PRN PRN Sugammadex Sodium Confirm 10/10/19 07:31 Bridion 200mg/2ml Administered 10/10/19 07:32 Dose 200 mg IV .STK-MED ONE Intake & Output (Last 24 hours) 10/11/19 10/12/19 10/13/19 10/14/19 11:59 11:59 11:59 11:59 Intake Total 2386 1025 Output Total 1225 Balance 1161 1025 Weight 97.7 kg 93.5 kg Laboratory Results (Last 24 hours) 10/10/19 08:43 Surg PTH Diagnosis See Note H Will start patient on nitroglycerin drip titrate for chest pain relief. We will follow troponin serially. Patient EKG appears to be unremarkable. Patient chest x-ray did not show any cardiomegaly or pleural effusion or pericardial effusion. Patient is afebrile and asymptomatic now after on nitroglycerin drip. Will observe patient for next 24 hours and will follow. Code(s): R07.9 - CHEST PAIN, UNSPECIFIED (2) Chest pain Status: Acute Qualifiers: Chest pain type: other chest pain Qualified Code(s): R07.89 - Other chest pain; R07.8 - Other chest pain Code(s): R07.9 - CHEST PAIN, UNSPECIFIED (3) Abnormal uterine bleeding Status: Acute Assessment & Plan: s/p Hysterectomy Code(s): N93.9 - ABNORMAL UTERINE AND VAGINAL BLEEDING, UNSPECIFIED (4) Hypertension Status: Acute Qualifiers: Hypertension type: essential hypertension Qualified Code(s): I10 - Essential (primary) hypertension Assessment & Plan: continue all home meds Code(s): I10 - ESSENTIAL (PRIMARY) HYPERTENSION
== END 2019-10-12 10:50 | disposition home or self-care (01) | DRG 743 ==
LOC: MED SURG 05:49 → ICU 11:25
PROVIDERS: ADMIT Obstetrics & Gynecology; ATTEND General Practice
PROC: 0UT90ZL Resection of Uterus, Supracervical, Open Approach (ICD-10-PCS; principal; 2019-10-10)
PROC: 0UT70ZZ Resection of Bilateral Fallopian Tubes, Open Approach (ICD-10-PCS; 2019-10-10)
PROC: 0DNW0ZZ Release Peritoneum, Open Approach (ICD-10-PCS; 2019-10-10)
DX: N93.9 Abnormal uterine and vaginal bleeding, unspecified (principal); R07.9 Chest pain, unspecified; N73.6 Female pelvic peritoneal adhesions (postinfective); I10 Essential (primary) hypertension; Z79.899 Other long term (current) drug therapy; Z86.79 Personal history of other diseases of the circulatory system; I25.2 Old myocardial infarction
CPT/HCPCS: 36415; 58180; 62322; 64488; 71045; 76937; 76942; 80053; 81001; 84134; 84484; 85027; 86850; 86900; 86901; 87077; 87086; 87186; 88307; 93005; 94760; J0690; J1100; J1650; J1885; J2250; J2274; J2405; J2704; J3010; A9270-GY

== ENCOUNTER 2020-03-13 06:22 | Day surgery (SDC) | payer OTHER ==
[2020-03-13] MEDS ORDERED: Lactated Ringers 1,000 ML IV SCH (07:00)
[2020-03-13] MEDS ORDERED: DIPRIVAN 200 MG/20 ML IV ONE (07:56)
[2020-03-13] MEDS ORDERED: Proair Hfa MDI IH ONE (08:04)
[2020-03-13 08:48] VITALS: O2SAT 97
[2020-03-13 09:46] VITALS: BP 140/84; PULSE 76
--- NOTE | 2020-03-13 09:56 | OP ---
SURGERY DATE/TIME: 03/13/2020 0759 PREOPERATIVE DIAGNOSES: 1) History of colon polyps. 2) Change in bowel habits. POSTOPERATIVE DIAGNOSIS: Diffuse diverticulosis. PROCEDURE: Colonoscopy. SURGEON: Harjeet Dalton M.D. ANESTHESIA: MAC by Perez Ordonez CRNA. ESTIMATED BLOOD LOSS: None. SPECIMENS: None. DESCRIPTION OF PROCEDURE: After informed written consent was obtained, the patient was taken to the endoscopy suite. She was placed in left lateral decubitus position. Anesthesia was titrated to desired level of consciousness. Digital rectal exam showed showed normal sphincter tone and no internal lesions. The scope was inserted into the rectum and sequentially the entire colonic mucosa was traversed. The level of cecum was reached and verified with direct visualization of ileocecal valve. Upon withdrawal careful mucosal inspection revealed diffuse diverticulosis. There was some liquid stool throughout most of the colon so prep was suboptimal but noted to be fair overall. There were no obvious mucosal abnormalities other than scattered diverticula throughout most of the length of the colon but mostly prevalent in the sigmoid colon region. Prior to withdrawal retroflexion was performed and showed no internal lesions. The scope was removed and the patient was transferred to the recovery room in good condition.
== END 2020-03-13 09:25 | disposition home or self-care (01) ==
LOC: SDC 06:22
PROVIDERS: ATTEND Family Medicine
DX: Z09 Encounter for follow-up examination after completed treatment for conditions other than malignant neoplasm (principal); K57.30 Diverticulosis of large intestine without perforation or abscess without bleeding; R19.4 Change in bowel habit; Z86.010 Personal history of colon polyps
CPT/HCPCS: J2704; A9270-GY

== ENCOUNTER 2020-06-27 11:49 | Day surgery (SDC) | payer OTHER ==
--- NOTE | 2020-06-14 10:27 | HP ---
DATE OF SURGERY: 06/27/2020 HISTORY OF PRESENT ILLNESS: The patient is a 49 year-old female who presents with a left neck supraclavicular lymphadenopathy. She states that this has been going on for about six months. She does not know if it is getting bigger. She states that she thought that it had reduced but not sure. She can feel it when she swallows. It is tender now most of the time. She did have an ultrasound of the area that showed she had a few benign appearing subcentimeter lymph nodes. She also states that she recently had right breast biopsy with some cluster cells that were undetermined. PAST MEDICAL HISTORY: Coronary artery disease, myocardial infarction, hypertension, hypothyroidism. PAST SURGICAL HISTORY: Closed angle glaucoma. Hysterectomy. ALLERGIES: CODEINE. HYDROCODONE. HYDROMORPHONE. MORPHINE. MEPERIDINE. MEDICATIONS: Levothyroxine. Lipitor. Lasix. Coreg. Aspirin. Nitro. FAMILY HISTORY: Heart disease. Blood pressure. Lung cancer. SOCIAL HISTORY: Occasional alcohol. REVIEW OF SYSTEMS: CONSTITUTIONAL: Denies fever or chills. CHEST: Denies shortness of breath. CVS: Denies chest pain. ABDOMEN: Denies abdominal pain. INTEGUMENTARY: Negative. PHYSICAL EXAMINATION: GENERAL: No acute distress. HEENT: Normocephalic. NECK: Left neck supraclavicular palpable density. CHEST: Nonlabored. No shortness of breath. CVS: Regular rate and rhythm. ABDOMEN: Soft, nontender to palpation. EXTREMITIES: No edema. NEUROLOGIC: Alert. PSYCHIATRIC: Appropriate. IMPRESSION: Left neck lymphadenopathy. PLAN: Left neck exploration possible lymph node biopsy possible excision of subcutaneous mass by Dr. Uli Colmenares. As dictated by Klaudia Vallecillo NP. A
[~2020-06-27 11:49] MED LIST changes: -CEFAZOLIN 2 GM-D5W BAG** 2 GM/50 ML ML IV ONE; +Lactated Ringers 1,000 ML IV ONE
[2020-06-27] MEDS ORDERED: Lactated Ringers 1,000 ML IV SCH (12:00)
[2020-06-27] MEDS ORDERED: XYLOCAINE 1% HCL 20 ML MDV ONE (13:04)
[2020-06-27] MEDS ORDERED: DIPRIVAN 200 MG/20 ML IV ONE (14:30)
[2020-06-27] MEDS ORDERED: Versed 2 MG/2 ML Injection ONE (14:31)
[2020-06-27] MEDS ORDERED: SUBLIMAZE 100 MCG/2 ML ONE (14:31)
[2020-06-27] MEDS ORDERED: Xylocaine-Mpf 2% 5 Ml Vial ONE (14:34)
--- NOTE | 2020-06-27 15:31 | OP ---
SURGERY DATE/TIME: 06/27/2020 1431 PREOPERATIVE DIAGNOSIS: Left neck mass. POSTOPERATIVE DIAGNOSIS: Left neck mass. PROCEDURE: Left neck mass excision predominantly a fatty tumor and probably some small lymph nodes. SURGEON: Uli Colmenares M.D. ANESTHESIA: General. COMPLICATIONS: None. CONDITION: Stable. INDICATION: A patient requiring biopsy of left neck mass. DESCRIPTION OF PROCEDURE: Taken to surgery. It was marked preoperatively. General anesthetic. Routine prep and drape. 0.25% Marcaine. Curvilinear incision. The subcutaneous tissue, the platysma, the deep tissue was entered and the fatty tissue was pulled up. I believe it had multiple small lymph nodes in it. There was no palpable residual mass in the entire area that was palpable. Hemostasis satisfactory. Closed with 3-0 Vicryl, 4-0 Vicryl, Steri-Strips. The patient tolerated the procedure satisfactorily.
[2020-06-27 16:14] VITALS: PULSE 75; O2SAT 98
[2020-06-27 16:30] VITALS: BP 141/84
== END 2020-06-27 16:20 | disposition home or self-care (01) ==
LOC: SDC 11:49
PROVIDERS: ATTEND Surgery
DX: D17.0 Benign lipomatous neoplasm of skin and subcutaneous tissue of head, face and neck (principal)
CPT/HCPCS: 88305; J2250; J2704; J3010